=== PATIENT | female | born 1935 | race Caucasian/White ===

== ENCOUNTER → 2016-05-20 | Outpatient (CLI) | payer OTHER ==
[~2016-05-20] VITALS: Ht 157.5 cm; Wt 61.2 kg
[~2016-05-20] MED LIST: ASPIRIN EC81 M1 PO; BISACODYL SUPP10 MG RE; CITRATE OF MAG296 ML PO; CLARITIN10 MG PO; COMPAZINE PO; COUMADIN 2.5MG2.5 M1; COUMADIN 4 MG TA4 M1 PO; DESYREL100 MG PO; DILTIAZEM 24HR120 M2 PO; DIPHENOXYLATE/A1 TA1 PO; ELIQUIS5 MG PO; HYDROCHLOROTHIA25 M1 PO; KLOR-CON 10 ER10 MEQ PO; LANOXIN 0.120.125 M1 PO; LANOXIN 0.120.125 M3 PO; LEVOTHYROXIN0.088 MG PO; MENEST0.625 MG PO; MILK OF MA2400 MG/10 PO; OMEPRAZOLE; PRESERVISION T1 EACH PO; SYNTHROID88 MCG PO; TENORMIN25 MG PO; TRAZODONE HCL100 MG PO; VALIUM5 MG PO; ZOFRAN4 MG PO
--- NOTE | ~2016-05-20 | S ---
[facility] [place] [address] SURGICAL PATH RPT PROCEDURE Name: VITA MARSHLIS MARIANNA Room #: REG [facility] Yves.#: [id number] Admission: 05/20/16 Date of : 35 Discharge: Report #: [id number] Path Case #: [id number] PATHOLOGY REPORT COLLECTION DATE: 05/20/2016 RECEIVED DATE: 05/20/2016 SUBMITTING PHYS: Dr. Saad Michelle OTHER PHYS: SPECIMEN(S) RECEIVED: A.Ascending colon polyp B.Random colon * * * * * * * * * * * * FINAL DIAGNOSIS: A. Polyp, ascending colon polyp, endoscopic biopsy: - Tubular adenoma along with a lymphoid aggregate. - Negative for high grade dysplasia. B. Large intestine, random colon, endoscopic biopsy: - No significant diagnostic abnormalities present. COMMENT: Part B: Sections of colon biopsy tissues show crypts at regular intervals and no increase in cellularity of lamina propria. There are no granulomas. The collagen layer underneath the epithelium is not thickened. There is no distortion in crypt architecture as well. There is no evidence of dysplasia. (IUV:csd; d/t: 05/21/2016) PATHOLOGIST: Lizzeth Jacob M.D. REPORT ELECTRONICALLY SIGNED BY: Lizzeth Jacob M.D. DATE/TIME: 05/21/2016 16:50 * * * * * * * * * * * * GROSS PATHOLOGY: A. Received in formalin labeled "Yoli Marsh, ascending colon polyp," are 2 segments of parks soft tissue measuring 0.4 x 0.4 x 0.2 cm in aggregate dimensions and ranging from 0.2 to 0.4 cm in maximum dimension. The specimen is submitted entirely in cassette A1. B. Received in formalin labeled "Yoli Marsh, random colon," are 3 segments of parks soft tissue measuring 0.6 x 0.5 x 0.3 cm in aggregate dimensions and ranging from 0.3 to 0.5 cm in maximum dimension. The specimen is submitted entirely in cassette B1. (KAH; 05/20/2016) [address] [address] SURGICAL PATH RPT PROCEDURE Name: YOLI MARSH Room #: REG [facility] Yves.#: [id number] Admission: 05/20/16 Date of : 35 Discharge: Report #: [id number] Path Case #: [id number] CLINICAL HISTORY: Pre-op diagnosis: Abdominal pain, abnormal CT Post-op diagnosis: Colon polyps, rule out microscopic colitis INITIAL CPT CODE(S): A; 37274 B; 92213 Professional services performed by [facility] at [address], [place] [address] Technical services performed by [facility] at [address] [place] [address], [address], [place] [address]. [facility] [address] [address] PHONE: [phone] DIRECTOR: Jeromy Fields M.D. * * * END OF REPORT * * *
--- NOTE | ~2016-05-20 | EKG ---
[address] [address] ELECTROCARDIOGRAM REPORT Name: KANA MARSH [id number] Admission: 05/20/16 Attend Phys: Saad Diaz Discharge: Date of : 35 Report #: [id number] THIS REPORT FOR: //name// [facility] Test Date: 2016-05-20 Test Time: 08:46:12 Pat Name: KANA MARSH Department: Room: Gender: F [employer]: SMITHA : 1935 Requested By: Saad Michelle Order Number: [id number] MD: Ludwin Valenzuela Measurements Intervals Baxter Rate: 61 P: 0 CA: 191 QRS: 30 QRSD: 86 T: 29 QT: 425 QTc: 428 Interpretive Statements Sinus rhythm No significant abnormality No previous ECG available for comparison Electronically Signed On 05-21-2016 7:44:27 CDT by Ludwin Valenzuela [email or web address] <ELECTRONICALLY SIGNED> By: Ludwin Valenzuela MD, [facility] 05/21/16 0744 [id number] [id number] Ludwin Valenzuela MD, FACC /EPI
--- NOTE | ~2016-05-20 | P ---
[facility] [place] [address] PROCEDURE REPORT Name: KANA MARSH Room #: REG [facility] Mary#: [id number] Admission: 05/20/16 Attend Phys: Saad Diaz Discharge: Date of : 35 Report #: [id number] THIS REPORT FOR: //name// CC: Saad Esquivel MD DATE OF SERVICE: 05/20/2016 PROCEDURE PERFORMED: Colonoscopy with biopsies. HISTORY OF PRESENT ILLNESS: The patient is an 80-year-old female with intermittent low abdominal pain. Apparently, she had a CT scan of the abdomen and pelvis recently at [facility] that showed a possible thickening. I do not have a copy of these results. She does have a history of intermittent diarrhea and constipation, tends to be more on the constipation side. She had a colonoscopy by Dr. Nelson Santiago in December of 2011 in which a polyp was removed from the cecum, and diverticulosis was noted at that time as well. She does have a family history of colon cancer in her brother. She denies any blood in her stools. Her weight has been stable. DESCRIPTION OF PROCEDURE: The risks and benefits of the procedure were explained to the patient, those risks including but not limited to bleeding, perforation, the risk of sedation. She understood these risks and gave informed consent. Sedation was given using propofol per anesthesia. Next, a digital rectal exam was initially performed, which was normal. Next, using a standard Fujinon colonoscope, the scope was placed in the patient's anus and advanced under direct vision to the cecum. The overall prep was excellent. The cecum and ileocecal valve were normal in appearance. In the proximal ascending colon, a single 3 mm sessile polyp was noted. This was removed with cold forceps, otherwise normal. The transverse and descending colon were normal. Multiple diverticula were noted in the sigmoid colon, no evidence of inflammation. Because of her history of intermittent diarrhea, random biopsies were obtained to rule out the possibility of microscopic colitis. The rectal mucosa was normal. On retroflexion, small nonbleeding internal hemorrhoids were noted. There was no colitis or thickening noted on exam today. The scope was then withdrawn and the procedure terminated. The patient tolerated the procedure well. IMPRESSION: 1. Small colonic polyp. 2. Sigmoid diverticulosis. 3. Small internal hemorrhoids. 4. Otherwise, normal colonoscopy. RECOMMENDATIONS: [address] [address] PROCEDURE REPORT Name: KANA MARSH Room #: REG CLI Mary#: [id number] Admission: 05/20/16 Attend Phys: Saad Diaz Discharge: Date of : 35 Report #: [id number] 1. Await biopsy results. 2. Would recommend trial of daily fiber. Thank you for allowing me to participate in her care. By: [id number] [id number] Saad Michelle MD /darrin
[2016-05-20 08:45] LABS: PROTIME 10.5 Seconds (9.3-11.4)
== END | disposition home or self-care (01) ==
LOC: GI 05-18 14:15
PROVIDERS: Specialist
DX: D12.2 Benign neoplasm of ascending colon (principal); K57.30 Diverticulosis of large intestine without perforation or abscess without bleeding; K64.8 Other hemorrhoids; G47.33 Obstructive sleep apnea (adult) (pediatric); E78.00 Pure hypercholesterolemia, unspecified; K21.9 Gastro-esophageal reflux disease without esophagitis; E03.9 Hypothyroidism, unspecified; N18.3 Chronic kidney disease, stage 3 (moderate); I12.9 Hypertensive chronic kidney disease with stage 1 through stage 4 chronic kidney disease, or unspecified chronic kidney disease; I48.91 Unspecified atrial fibrillation; F41.9 Anxiety disorder, unspecified; Z95.0 Presence of cardiac pacemaker; Z90.710 Acquired absence of both cervix and uterus; Z90.49 Acquired absence of other specified parts of digestive tract; Z98.890 Other specified postprocedural states; Z98.41 Cataract extraction status, right eye; Z98.42 Cataract extraction status, left eye; Z96.1 Presence of intraocular lens
CPT/HCPCS: 62110; 62900

== ENCOUNTER → 2017-03-17 | Outpatient (CLI) | payer OTHER ==
[~2017-03-17] MED LIST changes: +PRILOSEC 20 MG20 MG PO
== END ==
LOC: NUC 03-09 09:23
DX: R07.89 Other chest pain (principal); R07.9 Chest pain, unspecified; I10 Essential (primary) hypertension; E78.5 Hyperlipidemia, unspecified; I48.91 Unspecified atrial fibrillation

== ENCOUNTER → 2017-11-12 | Outpatient (CLI) | payer OTHER ==
[~2017-11-12] VITALS: Ht 157.5 cm; Wt 60.3 kg
--- NOTE | ~2017-11-12 | P ---
[facility] [place] [address] PROCEDURE REPORT Name: KANA MARSH Room #: REG [facility] Mary#: [id number] Admission: 11/12/17 Attend Phys: Saad Diaz Discharge: Date of : 35 Report #: [id number] THIS REPORT FOR: //name// CC: Saad Esquivel MD DATE OF SERVICE: 11/12/2017 PROCEDURE PERFORMED: Upper endoscopy with esophageal dilation. HISTORY OF PRESENT ILLNESS: The patient is an 82-year-old female with a history of dysphagia, intermittent for several years, but has become progressively worse. She also complained of heartburn type symptoms, began taking Prilosec 20 mg b.i.d. approximately 2-3 weeks ago. Dysphagia is primarily to solids and there are to liquids at times. Her weight has been stable. She denies any odynophagia. Bowel movements have been normal. She is on Coumadin for history of arrhythmia, but this has been held for the last several days. DESCRIPTION OF PROCEDURE: The risks and benefits of the procedure were explained to the patient, those risks including but not limited to bleeding, perforation, and the risk of sedation. She understood these risks and gave informed consent. Sedation was given using propofol per anesthesia. Next, using a standard Olympus upper endoscope, the scope was placed in the patient's mouth and advanced under direct vision through the esophagus, stomach and into the second portion of the duodenum. The larynx was normal in appearance. The upper and mid esophagus was normal. In the distal esophagus, mild Schatzki's ring was noted. No evidence of erosive esophagitis. The scope passed through this area without resistance. Overall, the gastric mucosa was normal. The pylorus was normal and patent. The duodenal bulb, first and second portion were all normal. The scope was then brought back up into the patient's stomach and a Savary guidewire was inserted through the scope, leaving the guidewire in place. The scope was then withdrawn. Next, a 48-Micronesian followed by a 51-Micronesian Savary dilation was performed of the esophagus without difficulty. The wire and dilator were removed. The scope was reintroduced into the patient's stomach. There was no evidence of mucosal tear after dilation. The scope was then withdrawn and the procedure terminated. The patient tolerated the procedure well. IMPRESSION: 1. Mild Schatzki's ring, status post dilation as above. 2. Otherwise, normal upper endoscopy. RECOMMENDATIONS: 1. Observe the patient post-procedure. 2. Would recommend decreasing Prilosec to once a day if this controls her [address] [address] PROCEDURE REPORT Name: KANA MARSH Room #: REG JESSI Hernandez#: [id number] Admission: 11/12/17 Attend Phys: Saad Diaz Discharge: Date of : 35 Report #: [id number] heartburn symptoms. Thank you for allowing me to participate in her care. <ELECTRONICALLY SIGNED> By: Saad Michelle MD 11/17/17 0823 [id number] [id number] Saad Michelle MD /nt
[2017-11-12 08:13] LABS: INR 1.1; PROTIME 11.7 Seconds (9.3-11.4)
== END | disposition home or self-care (01) ==
LOC: GI 07:14
PROVIDERS: Specialist
DX: K22.2 Esophageal obstruction (principal); I12.9 Hypertensive chronic kidney disease with stage 1 through stage 4 chronic kidney disease, or unspecified chronic kidney disease; N18.3 Chronic kidney disease, stage 3 (moderate); E03.9 Hypothyroidism, unspecified; E78.5 Hyperlipidemia, unspecified; G47.33 Obstructive sleep apnea (adult) (pediatric); I48.91 Unspecified atrial fibrillation; F41.9 Anxiety disorder, unspecified; K21.9 Gastro-esophageal reflux disease without esophagitis; Z79.899 Other long term (current) drug therapy; Z95.0 Presence of cardiac pacemaker; Z86.73 Personal history of transient ischemic attack (TIA), and cerebral infarction without residual deficits; Z79.01 Long term (current) use of anticoagulants; Z98.41 Cataract extraction status, right eye; Z98.42 Cataract extraction status, left eye; Z90.710 Acquired absence of both cervix and uterus; Z90.49 Acquired absence of other specified parts of digestive tract; Z85.831 Personal history of malignant neoplasm of soft tissue
CPT/HCPCS: 62110; 62900

== ENCOUNTER → 2018-12-13 | Outpatient (CLI) | payer OTHER ==
--- NOTE | 2018-12-13 12:14 | 2DMMODE ---
[facility] [address] [place] [address] 2 D/M-MODE ECHOCARDIOGRAM Name: KANA MARSH Room #: REG [facility]#: [id number] Admission: 12/13/18 Attend Phys: Jose Pickett Discharge: Date of : 35 Report #: [id number] THIS REPORT FOR: //name// APPROVED REPORT Study performed: 12/13/2018 10:53:29 EXAM: Comprehensive 2D, Doppler, and color-flow Echocardiogram Patient Location: Out-Patient Room #: Echo lab 2 Status: routine BSA: 1.62 HR: 71 bpm BP: 132/72 mmHg Rhythm: Pacemaker Other Information Study Quality: Good Indications Atrial Fibrillation Pacemaker Hypertension/HDD 2D Dimensions RVDd: 30.02 mm IVSd: 7.82 (7-11mm) LVOT Diam: 20.93 (18-24mm) LVDd: 45.20 mm PWd: 9.07 (7-11mm) Ascending Ao: 25.01 (22-36mm) LVDs: 30.51 (25-40mm) Aortic Root: 30.25 mm IVC: 21.00 mm Volumes Left Atrial Volume (Systole) Single Plane 4CH: 39.09 mL Single Plane 2CH: 42.69 mL LA ESV Index: 29.00 mL/m2 Aortic Valve AoV Peak Arnulfo.: 1.11 m/s AO Peak Gr.: 4.92 mmHg LVOT Max P.90 mmHg LVOT Max V: 0.69 m/s IGLESIA Vmax: 2.14 cm2 Mitral Valve E/A Ratio: 0.9 [facility] [email or web address] [address] 2 D/M-MODE ECHOCARDIOGRAM Name: KANA MARSH Room #: REG [facility]#: [id number] Admission: 12/13/18 Attend Phys: Jose Pickett Discharge: Date of : 35 Report #: [id number] MV Decel. Time: 156.14 ms MV E Max Arnulfo.: 0.95 m/s MV A Arnulfo.: 1.01 m/s MV PHT: 45.28 ms IVRT: 119.95 ms Pulmonary Valve PV Peak Arnulfo.: 0.76 m/s PV Peak Gr.: 2.28 mmHg Pulmonary Vein P Vein S: 0.67 m/s P Vein A: 0.25 m/s P Vein D: 0.36 m/s P Vein A Dur.: 166.1 msec P Vein S/D Ratio: 1.86 Tricuspid Valve TR Peak Arnulfo.: 2.70 m/s TR Peak Gr.: 29.20 mmHg PA Pressure: 39.00 mmHg Left Ventricle The left ventricle is normal size. There is normal LV segmental wall motion. There is normal left ventricular wall thickness. The left ventricular systolic function is normal. The left ventricular ejection fraction is within the normal range. LVEF is 55-60%. Grade I - abnormal relaxation pattern. Right Ventricle The right ventricle is normal size. The right ventricular systolic function is normal. Pacemaker lead is present in the right ventricle. Atria The left atrium size is normal. Right atrium is at the upper limits of normal. Pacemaker lead is present in the right atrium. Aortic Valve The aortic valve is normal in structure. Mild aortic regurgitation. There is no aortic valvular stenosis. Mitral Valve The mitral valve is normal in structure. Mild to moderate mitral regurgitation. No evidence of mitral valve stenosis. Tricuspid Valve The tricuspid valve is normal in structure. There is mild tricuspid regurgitation. Estimated PAP 39 mmHg. There is mild pulmonary hypertension. [address] [address] 2 D/M-MODE ECHOCARDIOGRAM Name: JERADLUISKANA HUDSON Room #: REG Mary#: [id number] Admission: 12/13/18 Attend Phys: [facility] Discharge: Date of : 35 Report #: [id number] Pulmonic Valve The pulmonary valve is normal in structure. Trace pulmonic regurgitation. Great Vessels The aortic root is normal in size. IVC is dilated and collapses >50% with inspiration. Pericardium There is no pericardial effusion. <Conclusion> The left ventricle is normal size. There is normal left ventricular wall thickness. The left ventricular systolic function is normal. Grade I - abnormal relaxation pattern. The right ventricle is normal size. Pacemaker lead is present in the right ventricle. The left atrium size is normal. Mild aortic regurgitation. Mild to moderate mitral regurgitation. There is mild tricuspid regurgitation. Estimated PAP 39 mmHg. <ELECTRONICALLY SIGNED> By: Chico Fernández MD 12/13/181212 12 12 Chico Fernández MD /INF
== END ==
LOC: CV 10:13
DX: I08.3 Combined rheumatic disorders of mitral, aortic and tricuspid valves (principal); I27.20 Pulmonary hypertension, unspecified; I48.91 Unspecified atrial fibrillation; E78.5 Hyperlipidemia, unspecified; I10 Essential (primary) hypertension; Z82.49 Family history of ischemic heart disease and other diseases of the circulatory system; Z95.0 Presence of cardiac pacemaker

== ENCOUNTER → 2019-12-20 | Outpatient (CLI) | payer OTHER | LOC: SJCVC 14:53 | PROVIDERS: ATTEND Internal Medicine Cardiovascular Disease | DX: R94.31 Abnormal electrocardiogram [ECG] [EKG] (principal); I48.0 Paroxysmal atrial fibrillation; I12.9 Hypertensive chronic kidney disease with stage 1 through stage 4 chronic kidney disease, or unspecified chronic kidney disease; N18.9 Chronic kidney disease, unspecified; I49.5 Sick sinus syndrome; I77.9 Disorder of arteries and arterioles, unspecified; I47.1 Supraventricular tachycardia; I49.1 Atrial premature depolarization; I34.0 Nonrheumatic mitral (valve) insufficiency; Z95.0 Presence of cardiac pacemaker; Z79.01 Long term (current) use of anticoagulants; Z79.899 Other long term (current) drug therapy ==

== ENCOUNTER → 2020-01-25 | Outpatient (CLI) | payer OTHER | LOC: SJCVCIMAG 08:00 | PROVIDERS: ATTEND Internal Medicine Cardiovascular Disease | DX: I65.23 Occlusion and stenosis of bilateral carotid arteries (principal); I08.3 Combined rheumatic disorders of mitral, aortic and tricuspid valves; I48.0 Paroxysmal atrial fibrillation; I11.9 Hypertensive heart disease without heart failure; I77.9 Disorder of arteries and arterioles, unspecified; Z79.01 Long term (current) use of anticoagulants; Z79.899 Other long term (current) drug therapy; Z86.73 Personal history of transient ischemic attack (TIA), and cerebral infarction without residual deficits ==